=== PATIENT | female | born 1995 | race Caucasian/White ===

== ENCOUNTER → 2018-03-15 18:12 | Outpatient (CLI) | payer OTHER, SELFPAY ==
[2018-03-21 08:41] LABS: HPV HC, High Risk Negative (Negative)
[2018-03-21 08:42] LABS: Chlamydia By Nucleic Acid AMP Negative; Gonococcus By Nucleic Acid AMP Negative; HPV, High Risk Negative
== END ==
PROVIDERS: Visit Provider Family Medicine
DX: Z12.4 Encounter for screening for malignant neoplasm of cervix (principal)
CPT/HCPCS: 87491; 87591; 87623; 87624; 88175; G0145

== ENCOUNTER → 2018-03-19 16:11 | Outpatient (CLI) | payer OTHER, SELFPAY ==
--- NOTE | 2018-03-19 16:18 | US_ITS ---
STUDY: ULTRASOUND OF THE FEMALE PELVIS - COMPLETE REASON FOR EXAM: Female, 22 years old. Heavy bleeding LMP: 03/07/2018 TECHNIQUE: Transabdominal and Transvaginal TECHNICAL QUALITY: Adequate. COMPARISON: None. FINDINGS: The uterus is anteverted and is tilted to the left side of the pelvis. The uterus measures 5.7 x 4.6 x 1.9 cm. Normal uterine cervix. The endometrium measures 4 mm in thickness, and is . There is no demonstrated endometrial mass. There is no demonstrated myometrial mass. I.U.D. - The patient does not have an I.U.D. The right ovary is visualized. The right ovary measures 2.0 x 0.9 x 1.1 cm. There is no right ovarian cyst or ovarian mass. There is no visualized right adnexal mass or complex lesion. There is normal arterial and normal venous vascularity. The left ovary is visualized. The left ovary measures 2.2 x 1.9 x 1.4 cm. There is a simple 9 mm cyst. There is no fluid in the cul-de-sac. The pre void volume of the bladder was 473.4 ml. US/Pelvic (Non ) IMPRESSION: Normal female pelvis. Electronically Signed: Sylvester Johnson MD at 13:09 EDT , Service support ,
--- NOTE | 2018-03-19 16:34 | US_ITS ---
STUDY: ULTRASOUND OF THE FEMALE PELVIS - COMPLETE REASON FOR EXAM: Female, 22 years old. Heavy bleeding LMP: 03/07/2018 TECHNIQUE: Transabdominal and Transvaginal TECHNICAL QUALITY: Adequate. COMPARISON: None. FINDINGS: The uterus is anteverted and is tilted to the left side of the pelvis. The uterus measures 5.7 x 4.6 x 1.9 cm. Normal uterine cervix. The endometrium measures 4 mm in thickness, and is . There is no demonstrated endometrial mass. There is no demonstrated myometrial mass. I.U.D. - The patient does not have an I.U.D. The right ovary is visualized. The right ovary measures 2.0 x 0.9 x 1.1 cm. There is no right ovarian cyst or ovarian mass. There is no visualized right adnexal mass or complex lesion. There is normal arterial and normal venous vascularity. The left ovary is visualized. The left ovary measures 2.2 x 1.9 x 1.4 cm. There is a simple 9 mm cyst. There is no fluid in the cul-de-sac. The pre void volume of the bladder was 473.4 ml. US/Transvaginal Non- IMPRESSION: Normal female pelvis. Electronically Signed: Sylvester Johnson MD at 13:09 EDT , Service support ,
== END ==
PROVIDERS: Family Provider Family Medicine; PCP Family Medicine; Visit Provider Family Medicine
DX: N93.8 Other specified abnormal uterine and vaginal bleeding (principal)
CPT/HCPCS: 76830; 76856

== ENCOUNTER → 2018-03-22 12:07 | Outpatient (CLI) | payer OTHER, SELFPAY ==
[2018-03-22 14:15] LABS: Absolute Neutrophil Count 3.1 X10^3/uL (2.0-7.7); Basophil# 0.03 X10^3/uL; Basophil% 0.5 % (0-1); Eosinophil# 0.23 X10^3/uL; Eosinophils% 4.1 % (0-5); Hematocrit 37.4 % (37-47); Hemoglobin 11.9 g/dl (12.0-15.0); Lymphocyte % 39.4 % (19-41); Mean Corp Hgb Conc 31.8 g/gl (32-36); Mean Corpuscular Hgb 26.6 pg (27.0-32.0); Mean Corpuscular Volume 83.7 fL (81-99); Mean Platelet Vol. 9.8 fl (6.2-12.0); Monocyte# 0.05 X10^3/uL; Monocyte% 0.9 % (0-10); Neutrophil # 3.08 X10^3/uL (2.7-7.7); Neutrophil % 55.1 % (47-70); Platelet Count 267 K/mm3 (150-450); RBC Distribution Width CV 12.6 % (11.6-14.6); RBC Distribution Width SD 38.2 fl (35.1-43.9); Red Blood Count 4.47 M/mm3 (4.2-5.4); White Blood Count 5.6 K/mm3 (4.4-11.0)
[2018-03-22 14:16] LABS: POSITIVE COUNT NO; POSITIVE DIFFERENTIAL NO; POSITIVE MORPHOLOGY NO
[2018-03-22 14:46] LABS: ALB/GLOB Ratio 0.8 RATIO (0.9-2.4); AST(SGOT) 16 U/L (15-37); Alanine Aminotransfer ALT/SGPT 21 U/L (13-56); Albumin, Serum 3.3 g/dL (3.2-5.0); Alkaline Phosphatase 85 U/L (45-117); Anion Gap 8 (5-15); BUN 9 mg/dL (7-18); BUN/Creat Ratio 12.5 RATIO (10-20); Calcium,Total 8.8 mg/dL (8.5-10.1); Chloride 107 mmol/L (98-107); Creatinine, Serum 0.72 mg/dL (0.55-1.02); EST Glomerular Filtration Rate 107 mL/min (>60); Est Glom Filt Rate - Afr Amer 130 mL/min (>60); Globulin 4.1 g/dL (2.2-4.2); Glucose 81 mg/dL (74-106); Potassium 4.1 mmol/L (3.5-5.1); Protein, Total 7.4 g/dL (6.4-8.2); Sodium Level 138 mmol/L (136-145); Thyroid Stim Hormone (TSH) 1.49 uIU/mL (0.358-3.74)
== END ==
PROVIDERS: Family Provider Family Medicine; PCP Family Medicine; Visit Provider Family Medicine
DX: N93.8 Other specified abnormal uterine and vaginal bleeding (principal)
CPT/HCPCS: 36415; 80053; 84443; 85025